=== PATIENT | male | born 1990 | race African-American/Black ===

== ENCOUNTER 2017-09-16 23:29 | Outpatient (CLI) | payer MEDICAID | END 2017-09-16 23:30 | disposition EMS.NT | LOC: EMS 23:29 | PROVIDERS: ATTEND Surgery | DX: M53.3 Sacrococcygeal disorders, not elsewhere classified (principal) ==

== ENCOUNTER 2017-09-18 12:57 | Emergency (ER) | payer MEDICAID ==
[2017-09-18 13:13] VITALS: BP 146/78
== END 2017-09-18 13:43 | disposition left against medical advice (07) ==
LOC: ED 12:57
DX: Z53.21 Procedure and treatment not carried out due to patient leaving prior to being seen by health care provider (principal)

== ENCOUNTER 2017-09-18 13:51 | Emergency (ER) | payer MEDICAID ==
[2017-09-18 14:03] VITALS: BP 151/87
[2017-09-18] MEDS ORDERED: LIDOCAINE 2%-EPI 1:100000 20 ML MDV SUBQ STA (15:51)
--- NOTE | 2017-09-18 15:58 | ED Physician Documentation ---
History of Present Illness - Stated complaint Stated Complaint: LOWER BACK PX - Chief complaint Chief Complaint: General - History obtained from History obtained from: Patient - History of Present Illness Timing: How many weeks ago (several) Pain level max: 6 Pain level now: 6 Improved by: nothing Worsened by: sitting - Additonal information Additional information: Patient is a 26-year-old male who presents to the emergency department with an abscess to the buttocks. States that this drained a few months ago, but never followed up. States it is now recurred and is becoming more painful and swollen. Is not draining. No fevers. No vomiting. Review of Systems Constitutional: denies: Fever, Chills Nose: denies: Rhinorrhea / runny nose, Congestion Respiratory: denies: Cough GI: denies: Abdominal Pain, Nausea, Vomiting, Diarrhea Skin: denies: Rash Musculoskeletal: denies: Neck pain, Back pain Neurologic: denies: Headache PD PAST MEDICAL HISTORY - Past Medical History Past Medical History: No - Past Surgical History Past Surgical History: Yes - Present Medications Home Medications: Ambulatory Orders Medication Instructions Recorded Confirmed Cephalexin [Keflex] 500 mg PO Q6H #28 capsule 09/18/17 Sulfamethox/Trimeth 800/160 1 each PO BID #14 tablet 09/18/17 [Bactrim Ds 800/160] - Allergies Allergies/Adverse Reactions: Allergies Allergy/AdvReac Type Severity Reaction Status Date / Time No Known Drug Allergies Allergy Verified 09/18/17 13:59 - Social History Does the pt smoke?: Yes Smoking Status: Current every day smoker Does the pt drink ETOH?: Yes Does the pt have substance abuse?: Yes Substance Use and Type: Marijuana - Immunizations Immunizations are current?: No - POLST Patient has POLST: No PD ED PE NORMAL - Vitals Vital signs reviewed: Yes - General General: Alert and oriented X 3, No acute distress - HEENT HEENT: Moist mucous membranes - Abdomen Abdomen: Soft, Non tender, Non distended, Other (3x3cm indurated, erythematous fluctuance area in the gluteal cleft.) - Derm Derm: Warm and dry - Neuro Neuro: Alert and oriented X 3 Results - Vitals Vitals: Vital Signs - 24 hr 09/18/17 13:59 Temperature 37.1 C Heart Rate 99 Respiratory 20 Rate Blood Pressure 151/87 H O2 Saturation 97 Oxygen O2 Source Room air PD MEDICAL DECISION MAKING - ED course Complexity details: considered differential, d/w patient ED course: Patient is a 26-year-old male who presents to the emergency department with what appears to be an infected pilonidal cyst. Patient is adamant that he refuses incision and drainage today. He states he will come back tomorrow for this. I talked to him for quite a while and he clearly does not consent to having it drained today. Therefore will place on antibiotics and patient informed of the risk of worsening symptoms including sepsis, osteomyelitis and . Patient accepts these. He will return tomorrow he states. Patient left AGAINST MEDICAL ADVICE. This document was made in part using voice recognition software. While efforts are made to proofread this document, sound alike and grammatical errors may occur. Departure - Departure Disposition: 07 Against Medical Advice Clinical Impression: Pilonidal cyst with abscess Condition: Good Instructions: ED Cyst Pilonidal Infected IandD Follow-Up: return,here tomorrow for drainage [Other] Prescriptions: Cephalexin [Keflex] 500 mg PO Q6H #28 capsule Sulfamethox/Trimeth 800/160 [Bactrim Ds 800/160] 1 each PO BID #14 tablet Comments: As you do not want to have this drained today, please return tomorrow to have the abscess drained as this can get worse and make you very ill. Discharge Date/Time: 09/18/17 16:20
[2017-09-18] MEDS ORDERED: SULFAMETH/TRIMETH DS 800/160 MG TABLET PO STA (16:08)
[2017-09-18] MEDS ORDERED: cephALEXin 250 MG CAPSULE PO STA (16:08)
== END 2017-09-18 16:20 | disposition left against medical advice (07) ==
LOC: ED 13:51
DX: L05.01 Pilonidal cyst with abscess (principal); F17.200 Nicotine dependence, unspecified, uncomplicated
CPT/HCPCS: 99281; 99283

== ENCOUNTER 2017-09-20 14:05 | Emergency (ER) | payer MEDICAID ==
[2017-09-20 14:31] VITALS: BP 131/81
[2017-09-20] MEDS ORDERED: BUFFERED LIDOCAINE 10 ML SYRINGE SUBQ STA (14:44)
[2017-09-20] MEDS ORDERED: BUFFERED LIDOCAINE 10 ML SYRINGE ONE (14:52)
--- NOTE | 2017-09-20 14:52 | ED Physician Documentation ---
PD HPI SKIN - Stated complaint Stated Complaint: ABSCESS ON BUTTOCKS - Chief complaint Chief Complaint: Wound - History obtained from History obtained from: Patient - History of Present Illness Timing - onset: Other (He has a pilonidal cyst for which he was seen the other night, he did not want it drained and he is back. He says it is actually slightly smaller and is not having any trouble with the antibiotics. No fevers. ) Review of Systems Constitutional: reports: Reviewed and negative Nose: reports: Reviewed and negative Cardiac: reports: Reviewed and negative PD PAST MEDICAL HISTORY - Past Surgical History Past Surgical History: Yes - Present Medications Home Medications: Ambulatory Orders Medication Instructions Recorded Confirmed Amox/Clav 875/125 [Augmentin] 1 each PO Q12H #14 tablet 09/20/17 - Allergies Allergies/Adverse Reactions: Allergies Allergy/AdvReac Type Severity Reaction Status Date / Time No Known Drug Allergies Allergy Verified 09/18/17 13:59 - Social History Does the pt smoke?: Yes Smoking Status: Current every day smoker Does the pt drink ETOH?: Yes Does the pt have substance abuse?: Yes - Immunizations Immunizations are current?: No - POLST Patient has POLST: No PD ED PE NORMAL - Vitals Vital signs reviewed: Yes - General General: Alert and oriented X 3, No acute distress - Derm Derm: Other (There is a pilonidal cyst at the top of the gluteal cleft that has already drained a little bit but is definitely incompletely drained.) - Neuro Neuro: Alert and oriented X 3, Normal speech - Psych Psych: Normal mood, Normal affect Results - Vitals Vitals: Vital Signs - 24 hr 09/20/17 14:29 Temperature 36.5 C Heart Rate 93 Respiratory 18 Rate Blood Pressure 131/81 H O2 Saturation 100 Oxygen O2 Source Room air Procedures - Abscess I&D (location) pilonidal Preparation: Betadine, Lidocaine 1% Incision: Incised with scalpel, Purulent drainage, Packed (with 1/4 inch packing ) Other: Pt tolerated well, Dressing applied. No: Antibiotic prescribed (already on abx) Departure - Departure Disposition: 01 Home, Self Care Clinical Impression: Pilonidal cyst with abscess Condition: Good Record reviewed to determine appropriate education?: Yes Instructions: ED Cyst Pilonidal Infected IandD Follow-Up: JEAN KING MD [Provider Admit Priv/Credential] - (For definitive treatment with the surgeon.) Prescriptions: Amox/Clav 875/125 [Augmentin] 1 each PO Q12H #14 tablet Comments: Continue the antibiotics. Follow-up with your doctor in 2 days for wound check and packing removal, return here if unable. Your blood pressure was elevated today on check into the emergency department. This does not mean that you have hypertension, it is a common phenomenon to come to the emergency department and have elevated blood pressure. I recommend that you see your primary care physician within the week to have it rechecked when you are feeling better. Discharge Date/Time: 09/20/17 15:27
[2017-09-20] MEDS ORDERED: oxyCOD/ACETAMIN 5 MG/325 MG TABLET PO STA (15:15)
== END 2017-09-20 15:27 | disposition home or self-care (01) ==
LOC: ED 14:05
DX: L05.01 Pilonidal cyst with abscess (principal); R03.0 Elevated blood-pressure reading, without diagnosis of hypertension; F17.200 Nicotine dependence, unspecified, uncomplicated
CPT/HCPCS: 10080; 99283; A9270